=== PATIENT | female | born 1945 | race African-American/Black ===

== ENCOUNTER 2017-05-18 14:18 | Observation (INO) | payer OTHER, MEDICAID ==
[~2017-05-18] VITALS: Ht 162.6 cm; Wt 55.3 kg
[2017-05-18 15:23] LABS: BASOPHILS % 0.5 % (0.0-2.0); EOSINOPHILS % 3.4 % (0.0-5.0); HEMATOCRIT. 43.6 % (36.0-48.0); HEMOGLOBIN. 14.5 g/dL (12.0-16.0); LYMPHOCYTES % 25.8 % (20.0-50.0); MEAN CORPUSCULAR HEMOGLOBIN 28.3 pg (28.0-32.0); MEAN CORPUSCULAR VOLUME 85.3 fL (81.0-99.0); MEAN PLATELET VOLUME 9.6 fl (7.4-10.4); MONOCYTES % 4.5 % (2.0-8.0); NEUTROPHILS % 65.8 % (40.0-76.0); PLATELET 150 x1000/uL (130-400); RED BLOOD CELL COUNT 5.11 mill/uL (4.2-5.4); RED CELL DISTRIBUTION WIDTH 13.4 % (11.6-14.6)
[2017-05-18 15:25] LABS: CHLORIDE 106 mEq/L (98-107)
[2017-05-18 15:32] LABS: CARBON DIOXIDE 28 mEq/L (21-32)
[2017-05-18 15:36] LABS: TROPONIN I < 0.02 ng/mL (0.00-0.04)
[2017-05-18 15:47] LABS: PROTHROMBIN TIME 10.5 sec (9.4-11.6)
[2017-05-18] MEDS ORDERED: SODIUM CHLORIDE 0.9% 1,000 ML IV ONE (18:00)
[2017-05-18] MEDS ORDERED: ONDANSETRON HCL 4MG/2ML VIAL IV ONE (18:00)
[2017-05-18] MEDS ORDERED: MECLIZINE 25MG TABLET PO ONE (18:45)
[2017-05-18] MEDS ORDERED: MECLIZINE 25MG TABLET PO PRN (23:15)
[2017-05-18] MEDS ORDERED: HYDROCODONE/ACETAMINOPHEN 5/325MG TABLET PO PRN (23:15)
[2017-05-19] VITALS (7 sets, daily range): BP systolic 104–140; BP diastolic 47–64
[2017-05-19] MEDS ORDERED: ENOXAPARIN 30MG/0.3ML SYR SUBCUT SCH
[2017-05-19] MEDS ORDERED: ASPIRIN 81MG TABLET PO SCH ×2 (02:00→09:00)
[2017-05-19] MEDS ORDERED: SODIUM CHLORIDE 0.45% 1,000 ML IV SCH (02:01)
[2017-05-19] MEDS ORDERED: POTASSIUM CHLORIDE 10MEQ TABLET SR PO SCH (02:01)
[2017-05-19] MEDS ORDERED: PANTOPRAZOLE 40MG DR TABLET PO SCH ×2 (02:01→07:20)
[2017-05-19] MEDS ORDERED: CHOL100046 PO (02:46)
[2017-05-19 07:13] LABS: BASOPHILS % 0.4 % (0.0-2.0); EOSINOPHILS % 3.3 % (0.0-5.0); HEMATOCRIT. 38.8 % (36.0-48.0); LYMPHOCYTES % 37.1 % (20.0-50.0); MEAN CORPUSCULAR HEMOGLOBIN 28.5 pg (28.0-32.0); MEAN CORPUSCULAR VOLUME 85.1 fL (81.0-99.0); MONOCYTES % 6.5 % (2.0-8.0); NEUTROPHILS % 52.7 % (40.0-76.0); PLATELET 199 x1000/uL (130-400); RED BLOOD CELL COUNT 4.56 mill/uL (4.2-5.4); RED CELL DISTRIBUTION WIDTH 13.5 % (11.6-14.6)
[2017-05-19] MEDS ORDERED: ENOXAPARIN 40MG/0.4ML SYR SUBCUT SCH (09:00)
[2017-05-19 10:11] LABS: CARBON DIOXIDE 27 mEq/L (21-32); CHLORIDE 110 mEq/L (98-107); TROPONIN I < 0.02 ng/mL (0.00-0.04)
== END 2017-05-19 19:10 | disposition home or self-care (01) ==
LOC: ER 15:44 → 6WST 20:59 → INTOOBSV 20:59 → ENRESERV 23:05
PROVIDERS: ADMIT Internal Medicine; ATTEND Internal Medicine
DX: R55 Syncope and collapse (principal); I10 Essential (primary) hypertension; K21.9 Gastro-esophageal reflux disease without esophagitis
CPT/HCPCS: 36415; 70450; 71010; 80053; 83690; 84443; 84484; 85025; 85610; 93005; 93880; 96361; 96372; 96374; 99285; G0378; J1650; J2405; J7030; J8597

== ENCOUNTER 2017-06-03 11:27 | Emergency (ER) | payer OTHER, MEDICAID ==
[~2017-06-03] VITALS: Ht 167.6 cm; Wt 75.0 kg
[~2017-06-03 11:27] MED LIST: CHOL100046 PO
[2017-06-03 12:52] VITALS: BP 137/66
[2017-06-03] MEDS: ACETAMINOPHEN WITH CODEINE 300/30MG TABLET PO STA (12:52)
== END 2017-06-03 13:50 | disposition home or self-care (01) ==
LOC: ER 11:27
DX: S09.8XXA Other specified injuries of head, initial encounter (principal); M54.9 Dorsalgia, unspecified; M79.601 Pain in right arm; M25.559 Pain in unspecified hip; K21.9 Gastro-esophageal reflux disease without esophagitis; V74.6XXA Passenger on bus injured in collision with heavy transport vehicle or bus in traffic accident, initial encounter; Y93.89 Activity, other specified; Y92.89 Other specified places as the place of occurrence of the external cause; Y99.8 Other external cause status
CPT/HCPCS: 70450; 99284; L0172